=== PATIENT | male | born 2000 | race Caucasian/White ===

== ENCOUNTER 2022-04-17 07:03 | Emergency (ER) | payer OTHER ==
[2022-04-17] MEDS ORDERED: LORazepam 2 MG/ML SDV IVPUSH ONE (07:15)
[2022-04-17] MEDS ORDERED: Dextrose 5%-0.9% NaCl 1,000 ML IV SCH (07:15)
[2022-04-17] MEDS ORDERED: levETIRAcetam 500 MG in Sodium Chloride 0.9% 100 ML IV ONE (07:17)
[2022-04-17 07:55] LABS: ESTIMATED GFR 124 mL/min (>60)
== END 2022-04-17 12:07 | disposition home or self-care (01) ==
LOC: JD.ED 07:03
DX: S92.121A Displaced fracture of body of right talus, initial encounter for closed fracture (principal); S16.1XXA Strain of muscle, fascia and tendon at neck level, initial encounter; S63.501A Unspecified sprain of right wrist, initial encounter; S20.212A Contusion of left front wall of thorax, initial encounter; S09.90XA Unspecified injury of head, initial encounter; R56.9 Unspecified convulsions; V89.2XXA Person injured in unspecified motor-vehicle accident, traffic, initial encounter; Y92.410 Unspecified street and highway as the place of occurrence of the external cause
CPT/HCPCS: 29125; 36415; 70450; 71045; 72125; 73110; 73610; 73700; 80053; 80306; 80307; 83605; 85025; 96361; 96365; 96375; 99285; J1953; J2060; J7042; 99284

== ENCOUNTER 2022-04-19 10:56 | Emergency (ER) | payer SELFPAY | END 2022-04-19 12:20 | disposition home or self-care (01) | LOC: JD.ED 10:56 | DX: Z47.89 Encounter for other orthopedic aftercare (principal); F17.210 Nicotine dependence, cigarettes, uncomplicated | CPT/HCPCS: 29515; 99282; 99283 ==

== ENCOUNTER 2022-11-04 12:14 | Emergency (ER) | payer OTHER ==
[2022-11-04] MEDS ORDERED: HYDROmorphone 1 MG/ML Syringe IVPUSH ONE (12:22)
[2022-11-04] MEDS ORDERED: Sodium Chloride 0.9% 10 ML Syringe FLUSH PRN (12:22)
[2022-11-04] MEDS ORDERED: LORazepam 2 MG/ML SDV IVPUSH ONE (12:23)
[2022-11-04] MEDS ORDERED: HYDROmorphone 0.5 MG/0.5 ML Syringe IVPUSH ONE (12:57)
== END 2022-11-04 13:38 | disposition home or self-care (01) ==
LOC: JD.ED 12:14
DX: T20.20XA Burn of second degree of head, face, and neck, unspecified site, initial encounter (principal); T22.112A Burn of first degree of left forearm, initial encounter; Z79.899 Other long term (current) drug therapy; Z90.49 Acquired absence of other specified parts of digestive tract; X10.2XXA Contact with fats and cooking oils, initial encounter
CPT/HCPCS: 96374; 96375; 99283; J1170; J2060; J3490; 99284

== ENCOUNTER 2024-05-14 11:15 | Emergency (ER) | payer SELFPAY ==
[2024-05-14 11:59] LABS: BASOPHILS PERCENT AUTO 0.2 % (0.0-1.0); EOSINOPHILS PERCENT AUTO 0.1 % (0.0-6.0); HEMATOCRIT 45.4 % (42.0-52.0); HEMOGLOBIN 15.5 gm/dl (14.0-18.0); IMMATURE GRAN ABSOLUTE AUTO 0.02 K/mm3 (0.00-0.05); IMMATURE GRAN PERCENT AUTO 0.2 % (0.0-0.4); LYMPHOCYTES PERCENT AUTO 11.5 % (24.0-44.0); MEAN CORPUSCULAR HEMOGLOBIN 29.9 pg (28.0-32.0); MEAN CORPUSCULAR HGB CONC 34.1 g/dl (32.0-36.0); MEAN CORPUSCULAR VOLUME 87.6 fl (83.0-99.0); MEAN PLATELET VOLUME 10.2 fl (9.4-12.4); MONOCYTES ABSOLUTE AUTO 0.5 K/mm3 (0.0-0.8); MONOCYTES PERCENT AUTO 5.8 % (0.0-8.0); NEUTROPHILS PERCENT AUTO 82.2 % (41.0-71.0); PLATELET COUNT,PLT 267 K/mm3 (150-400); RED BLOOD CELL COUNT 5.18 M/mm3 (4.52-5.90); WHITE BLOOD CELL COUNT,WBC 8.52 K/mm3 (3.9-11.3)
[2024-05-14 12:26] LABS: A/G RATIO 1.3 (1-2); ALBUMIN 4.3 g/dl (3.4-5.0); ANION GAP 8.6 (5-15); BILIRUBIN TOTAL 0.7 mg/dL (0.2-1.0); C-REACTIVE PROTEIN 0.19 mg/dL (<0.30); CALCIUM 9.6 mg/dL (8.5-10.1); EST CRCL DRUG DOSING (CG) 99.08 mL/min; MAGNESIUM 1.9 mg/dL (1.8-2.4); POTASSIUM,K 4.6 mEq/L (3.5-5.1); PROTEIN TOTAL,TP 7.5 g/dl (6.4-8.2)
[2024-05-14] MEDS: Sodium Chloride 0.9% 1,000 ML IV STA (12:30)
[2024-05-14] MEDS: Sodium Chloride 0.9% 10 ML Syringe FLUSH PRN (12:33)
[2024-05-14 13:52] LABS: APPEARANCE,URINE CLEAR (Clear); BILIRUBIN,URINE NEGATIVE (Negative); COLOR,URINE LIGHT YELLOW (Yellow); GLUCOSE,URINE NEGATIVE (Negative); KETONES,URINE TRACE (Negative); LEUKOCYTE ESTERASE,URINE NEGATIVE (Negative); NITRITE,URINE NEGATIVE (Negative); OCCULT BLOOD,URINE NEGATIVE (Negative); PROTEIN,URINE NEGATIVE (Negative); UROBILINOGEN,URINE 0.2 (0.2-1.0)
[2024-05-17 18:42] LABS: KEPPRA 22 ug/mL (10-40)
[2024-05-18 04:46] LABS: LAMOTROGINE 5.9 ug/mL (3.0-15.0)
== END 2024-05-14 14:16 | disposition home or self-care (01) ==
LOC: JD.ED 11:15
DX: G40.909 Epilepsy, unspecified, not intractable, without status epilepticus (principal); Z79.899 Other long term (current) drug therapy; Z90.49 Acquired absence of other specified parts of digestive tract
CPT/HCPCS: 36415; 80053; 80175; 80177; 81003; 83735; 85025; 86140; 93005; 99284; J3490; J7030; 93010; 99283